=== PATIENT | male | born 1950 | race Two or more races ===

== ENCOUNTER 2022-06-11 00:15 | Emergency (ER) | payer OTHER ==
[~2022-06-11] VITALS: Ht 175.3 cm; Wt 80.0 kg
[2022-06-11 01:27] LABS: Hematocrit 29.5 % (41.0-53.0); White Blood Cell 19.2 10^3/uL (4.4-10.8)
[2022-06-11 01:29] LABS: Hemoglobin 9.6 g/dL (13.5-17.5); Mean Corpuscular Hemoglobin 25.6 pg (28.0-32.0); Mean Corpuscular Hgb Conc. 32.7 g/dL (32.0-36.0); Mean Corpuscular Volume 78.5 fL (80.0-100.0); Red Blood Cells 3.75 10^6/uL (4.5-5.90); Red Cell Distribution Width 17.8 % (11.8-14.3)
[2022-06-11 01:46] LABS: Albumin 2.8 g/dL (3.4-5.0); BUN/Creatinine Ratio 26.2; Calcium 8.6 mg/dL (8.5-10.1); Potassium 4.8 mmol/L (3.5-5.1)
[2022-06-11 01:49] LABS: Bilirubin, Total 0.7 mg/dL (0.2-1.0); Total Protein 6.5 g/dL (6.4-8.2)
[2022-06-11 02:01] LABS: Basophils % (manual) 0 (0.0-2.0); Blast Cells 0; Eosinophils % (manual) 0 (0-7); Metamyelocytes % 0; Promyelocytes % 0; Reactive Lymphocytes 0
[2022-06-11 02:48] LABS: Band Neutrophils % (manual) 5; Myelocytes % 1
[2022-06-11 02:50] LABS: Lymphocytes % (manual) 16 (10.0-50.0); Monocytes % (manual) 8 (0-12)
[2022-06-11] MEDS ORDERED: LACTATED RINGER'S 1,000 ML IV ONE (03:30)
[2022-06-11] MEDS ORDERED: fentaNYL CITRATE 100 MCG/2 ML VL IV ONE (03:30)
[2022-06-11] MEDS ORDERED: ONDANSETRON HCL 4 MG/2 ML VIAL IV ONE (03:30)
[2022-06-11] MEDS ORDERED: IOHEXOL 350 MG/ML 100ML IJ ONE (06:11)
[2022-06-11] MEDS ORDERED: VANCOMYCIN 1GM/250ML 250 ML IV ONE (06:15)
[2022-06-11] MEDS ORDERED: PIPERACILLIN-TAZOB 3.375GM 100 ML IV ONE (06:15)
[2022-06-11] MEDS ORDERED: SODIUM CHLORIDE 0.9% 1,000 ML IV ONE (06:15)
[2022-06-11 08:25] LABS: Urine Bacteria FEW /hpf (None Seen); Urine Blood Negative /uL (Negative); Urine Specific Gravity 1.032 (1.001-1.035); Urine WBC <1 /hpf (0 - 3)
[2022-06-11 14:45] VITALS: BP 90/45
== END 2022-06-11 15:12 | disposition short-term general hospital (02) ==
LOC: EDBD 00:15 → ER 00:15
DX: M54.50 Low back pain, unspecified (principal); C64.9 Malignant neoplasm of unspecified kidney, except renal pelvis; C79.51 Secondary malignant neoplasm of bone; C78.00 Secondary malignant neoplasm of unspecified lung; R10.9 Unspecified abdominal pain; G54.3 Thoracic root disorders, not elsewhere classified; E86.0 Dehydration; D72.829 Elevated white blood cell count, unspecified; R53.1 Weakness; Z20.822 Contact with and (suspected) exposure to COVID-19; Z98.890 Other specified postprocedural states
CPT/HCPCS: 36415; 74177; 80053; 81001; 83880; 84484; 85007; 85027; 87426; 93005; 96361; 96365; 96366; 96367; 96375; 99285; J2405; J2543; J3010; J3370; J7030; Q9967